=== PATIENT | male | born 1990 | race Caucasian/White ===

== ENCOUNTER 2016-11-16 15:53 | Emergency (ER) | payer OTHER ==
[2016-11-16 16:00] VITALS: BP 132/67; PULSE 76; TEMP 98; BMI 19.5
--- NOTE | 2016-11-16 16:07 | PDOC ---
History of Present Illness - General History Source: Patient Exam Limitations: No Limitations - History of Present Illness Initial Comments: CHIEF COMPLAINT: 26 y/o afebrile male with no significant PMH c/o jaw pain and feeling unwell for a few days. HISTORY OF PRESENT ILLNESS: The patient states he was sneezing and had watery eyes for a few days. He started using a nasal spray and some of his symptoms improved. He last used the spray 2 days ago and states he hasn't taken any medication since then. Today, the right side of his jaw began hurting and he admits to feeling like he couldn't breath on the right side of his throat for about 1 minute but that feeling has resolved. He denies f/c, earache, cough, sore throat, n/v/d, CP, SOB, abd pain, and all other symptoms. Vital signs on arrival are within normal limits. REVIEW OF SYSTEMS: GENERAL/CONSTITUTIONAL: No fever/chills. No weakness. No weight change. HEAD, EYES, EARS, NOSE AND THROAT: No change in vision. No ear pain or discharge. No sore throat. +right sided jaw pain. +diffiiculty breathing on right side of throat. CARDIOVASCULAR: No chest pain or shortness of breath. RESPIRATORY: No cough, wheezing, or hemoptysis. GASTROINTESTINAL: No abd pain, nausea, vomiting, diarrhea. GENITOURINARY: No dysuria, frequency, or change in urination. MUSCULOSKELETAL: No joint or muscle swelling or pain. No neck or back pain. SKIN: No rash or easy bruising. PHYSICAL EXAM: GENERAL: The patient is awake, alert, and fully oriented, in no acute distress. He is very well appearing, ambulatory, in NAD or obvious discomfort. No cough. HEAD: Normal with no signs of trauma. ENT: +TTP of right TMJ without clicking or trismus. Pupils equal, round and reactive to light, extraocular movements intact, sclera anicteric, conjunctiva clear. No tonsilar erythema, edema or exudate. Airway patent. No watery eyes. No rhinorrhea. LUNGS: Clear to auscultation bilaterally. Normal excursion. No respiratory distress or use of accessory muscles. CV: RRR, S1/S2, no MRG. Cap refill < 2 sec. ABDOMEN: Soft, non-distended, non-tender even to deep palpation, no hepatomegaly or splenomegaly, no masses. EXTREMITIES: Normal range of motion, no edema. NEUROLOGICAL: Normal speech, normal gait. CN II-XII grossly intact. PSYCH: Normal mood, normal affect. SKIN: Warm, dry, normal turgor, no rashes or lesions noted. <Gema Gonzalez - Last Filed: 11/16/16 16:20> <Tran Zambrano - Last Filed: 11/17/16 01:18> - General Chief Complaint: Allergic Reaction Stated Complaint: DIFF BREATHING Time Seen by Provider: 11/16/16 16:06 Past History - Past Medical History Psychiatric Problems: Yes (bipolar/adhd) - Immunization History Immunization Up to Date: No - Psycho/Social/Smoking Cessation Hx Anxiety: No Suicidal Ideation: No Smoking Status: No Smoking History: Never smoked Have you smoked in the past 12 months: No Number of Cigarettes Smoked Daily: 0 Information on smoking cessation initiated: No Hx Alcohol Use: No Drug/Substance Use Hx: No Substance Use Type: Alcohol <Gema Gonzalez - Last Filed: 11/16/16 16:20> <Tran Zambrano - Last Filed: 11/17/16 01:18> - Past Medical History Allergies/Adverse Reactions: Allergies Allergy/AdvReac Type Severity Reaction Status Date / Time No Known Allergies Allergy Verified 11/16/16 15:56 Home Medications: Ambulatory Orders No Home Medications 0 dose .ROUTE UTDICT 06/01/13 Diphenhydramine HCl [Benadryl -] 25 mg PO Q6H #28 capsule 11/17/16 *Physical Exam - Vital Signs Last Vital Signs Temp Pulse Resp BP Pulse Ox 98 F 76 18 132/67 100 11/16/16 15:56 11/16/16 15:56 11/16/16 15:56 11/16/16 15:56 11/16/16 15:56 <Gema Gonzalez - Last Filed: 11/16/16 16:20> - Vital Signs Last Vital Signs Temp Pulse Resp BP Pulse Ox 98 F 76 18 132/67 100 11/16/16 15:56 11/16/16 15:56 11/16/16 15:56 11/16/16 15:56 11/16/16 15:56 <Tran Zambrano - Last Filed: 11/17/16 01:18> ED Treatment Course - Medications Given in the ED: ED Medications Discontinued Medications Generic Name Dose Route Start Last Admin Trade Name Carrie PRN Reason Stop Dose Admin Ibuprofen 400 mg 11/16/16 16:16 11/16/16 16:34 Motrin - PO 11/16/16 16:17 400 mg ONCE ONE Administration Loratadine 10 mg 11/16/16 16:16 11/16/16 16:34 Claritin - PO 11/16/16 16:17 10 mg ONCE ONE Administration <Tran Zambrano - Last Filed: 11/17/16 01:18> Medical Decision Making - Medical Decision Making A/P: 26 y/o male with seasonal allergies and TMJ. Plan is as follows: 1. PO claritin 2. PO motrin Suggested he not use the nasal spray anymore. Instructed him to take claritin or zyrtec daily for allergy symptoms and motrin for jaw pain. Instructed him to f/u with Dr. Morse within 1 week, drink plenty of fluids and return to the ER with any worsening or concerning symptoms. The patient verbalizes understanding of all instructions, has no further questions and is awaiting discharge. <Gema Gonzalez - Last Filed: 11/16/16 16:20> - Medical Decision Making 11/17/16 01:14 I spoke to [place] poison control and they tell me that shrt MN is nothing to worry about; we need only to make sure pt's QT interval is not prolonged, which it is not. Pt's labs are normal; dystonia and toricollis disappeared with benadryl and woth cogentin. [facility] recommends oral benadry QID x 3-4 days. I will give patient a 7 day supply. We spoke of the fact that quetiapine is abused on the streets these days and that it can couse dysronic reactions. Pt's CXR is normal, EKG is normal suinus with short MN, and pt's Utox is pending. His exam is improved. He will be discharged home with his mom with a prescription of benadryl <Tran Zambrano - Last Filed: 11/17/16 01:18> *DC/Admit/Observation/Transfer <Gema Gonzalez - Last Filed: 11/16/16 16:20> - Discharge Dispostion Admit: No <Tran Zambrano - Last Filed: 11/17/16 01:18> Diagnosis at time of Disposition: Dystonic drug reaction - Discharge Dispostion Disposition: HOME Condition at time of disposition: Good - Patient Instructions Printed Discharge Instructions: Dystonia Movement Disorders Additional Instructions: Discharge Instructions: -Take over the counter zyrtec or claritin daily for allergy symptoms -Take Motrin with food every 6 hours for pain if needed -Drink plenty of fluids -Follow up with Dr. Morse within 1 week -Return to the ER with any worsening or concerning symptoms
[2016-11-16] MEDS ORDERED: IBUPROFEN 400 MG TABLET (FP) PO ONE ×2 (16:16→16:26)
[2016-11-16] MEDS ORDERED: LORATADINE 10 MG TABLET PO ONE (16:16)
[2016-11-16] MEDS ORDERED: LORATADINE 10 MG TABLET ONE (16:26)
== END 2016-11-16 16:34 | disposition home or self-care (01) ==
LOC: JERFT 15:53
PROC: 3E033GC Introduction of Other Therapeutic Substance into Peripheral Vein, Percutaneous Approach (ICD-10-PCS; principal; 2016-11-16)
DX: G24.9 Dystonia, unspecified (principal)
CPT/HCPCS: 99281-25

== ENCOUNTER 2016-11-16 21:57 | Emergency (ER) | payer OTHER ==
[2016-11-16 22:07] VITALS: BMI 20.5
--- NOTE | 2016-11-16 22:41 | PDOC ---
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 The pt was seen earlier today for TMJ symptoms and was discharged home. Patient reports back to the ED tonight for involuntary muscle movements triggered after the patient took one of his friends pills today. Pt is unsure of what he took. Pt denies having any other symptoms. <Karina Brooks - Last Filed: 11/17/16 01:23> <Tran Zambrano - Last Filed: 11/17/16 05:48> - General Chief Complaint: Seizure Stated Complaint: SEIZURE Time Seen by Provider: 11/16/16 22:04 Past History <Karina Brooks - Last Filed: 11/17/16 01:23> - Past Medical History Psychiatric Problems: Yes (bipolar/adhd) - Immunization History Immunization Up to Date: No - Psycho/Social/Smoking Cessation Hx Anxiety: No Suicidal Ideation: No Smoking Status: No Smoking History: Unknown if ever smoked Have you smoked in the past 12 months: No Number of Cigarettes Smoked Daily: 0 Information on smoking cessation initiated: No Hx Alcohol Use: No Drug/Substance Use Hx: Yes (marijuana) Substance Use Type: Marijuana <Tran Zambrano - Last Filed: 11/17/16 05:48> - Past Medical History Allergies/Adverse Reactions: Allergies Allergy/AdvReac Type Severity Reaction Status Date / Time No Known Allergies Allergy Verified 11/16/16 22:03 Home Medications: Ambulatory Orders No Home Medications 0 dose .ROUTE UTDICT 06/01/13 Diphenhydramine HCl [Benadryl -] 25 mg PO Q6H #28 capsule 11/17/16 Review of Systems - Review of Systems Able to Perform ROS?: Yes Comments:: 11/16/16 22:49 CONSTITUTIONAL: Absent: fever, no chills, no fatigue EYES: Absent: visual changes ENT: Absent: ear pain, no sore throat CARDIOVASCULAR: Absent: chest pain, no palpitations RESPIRATORY: Absent: cough, no SOB GI: Absent: abdominal pain, no nausea, no vomiting, no constipation, no diarrhea GENITOURINARY: Absent: dysuria, no frequency, no hematuria MUSKULOSKELETAL: Present: Involuntary muscle movements Absent: back pain, no arthralgia, no myalgia SKIN: Absent: rash NEURO: Absent: headache <Karina Brooks - Last Filed: 11/17/16 01:23> *Physical Exam - Vital Signs Last Vital Signs Temp Pulse Resp BP Pulse Ox 97.8 F 97 H 19 141/89 100 11/16/16 22:19 11/16/16 22:19 11/16/16 22:19 11/16/16 22:19 11/16/16 22:19 - Physical Exam Comments: 11/16/16 22:51 GENERAL: Well-appearing, well-nourished. No apparent distress. HEENT: Normocephalic, atraumatic. PERRL, EOM intact. CARDIOVASCULAR: Normal S1, S2. Regular rate and rhythm. PULMONARY: Clear to auscultation bilaterally. ABDOMEN: Soft, non-distended, non-tender. EXTREMITIES: Normal ROM in all four extremities. No gross deformities. SKIN: Warm, dry. (+)Tattoos on arms. Abrasion on left elbow. NEUROLOGICAL: No focal neurological deficits. <Karina Brooks - Last Filed: 11/17/16 01:23> - Vital Signs Last Vital Signs Temp Pulse Resp BP Pulse Ox 97.8 F 97 H 19 141/89 100 11/16/16 22:19 11/16/16 22:19 11/16/16 22:19 11/16/16 22:19 11/16/16 22:19 <Tran Zambrano - Last Filed: 11/17/16 05:48> ED Treatment Course - LABORATORY CBC & Chemistry Diagram: 11/16/16 22:35 11/16/16 22:35 - Medications Given in the ED: ED Medications Discontinued Medications Generic Name Dose Route Start Last Admin Trade Name Freq PRN Reason Stop Dose Admin Diphenhydramine HCl 50 mg 11/16/16 22:42 11/16/16 22:43 Benadryl Injection - IVPUSH 11/16/16 22:43 50 mg NOW ONE Administration <Karina Brooks - Last Filed: 11/17/16 01:23> - LABORATORY CBC & Chemistry Diagram: 11/16/16 22:35 11/16/16 22:35 <Tran Zambrano - Last Filed: 11/17/16 05:48> Medical Decision Making - Medical Decision Making 11/17/16 05:40 Pt comes with dyskinesia. He was here earlier in the afternoon with jaw pain and strange sensation and inability to close jaw. Pt now has torticollis, smacking of tongue and flexion of the arm toward the neck. Everything resloved with benadryl and cogentin, and it is clear that pt had a dystonic reaction, but not clear to what. Pt states that he received a pill from a friend that was supposed to be for allergies, but after the pill, his dyskinesia worsened. Pt also uses weed. I spoke to [place] poison control, and they tell me that pt's pr shortening is not of concern. We need to make sure that pt doesn't have QT prolongation (which he doesn't) [facility] tells me that quetiapine is a dyskinesia casing popular street drug. Pt is not sure what he took. He has normal labs and UTOX shows only THC. Pt received IVF. He will be discharged home with mom with a prescription of benadryl to treat residual dyskinesia <Tran Zambrano - Last Filed: 11/17/16 05:48> *DC/Admit/Observation/Transfer - Attestations Scribe Attestion: 11/16/16 22:51 Documentation prepared by Karina Brooks, acting as medical appointment clerk for Tran Zambrano MD. <Karina Brooks - Last Filed: 11/17/16 01:23> <Tran Zambrano - Last Filed: 11/17/16 05:48> Diagnosis at time of Disposition: Dystonic drug reaction - Discharge Dispostion Disposition: HOME Condition at time of disposition: Guarded - Prescriptions Prescriptions: Diphenhydramine HCl [Benadryl -] 25 mg PO Q6H #28 capsule
[2016-11-16 22:48] LABS: BASOPHIL 0.5 % (0-2.0); EOSINOPHIL 1.2 % (0-4.5); MCH 31.4 pg (25.7-33.7); MCHC 32.6 g/dl (32.0-35.9); MEAN CELL VOLUME 96.3 fl (80-96); MEAN PLT VOLUME 8.8 fl (7.5-11.1); NEUTROPHILS 68.4 % (42.8-82.8); PLATELET COUNT 274 K/MM3 (134-434); RDW 12.6 % (11.9-15.9); WHITE BLOOD COUNT 7.6 K/mm3 (4.0-10.0)
[2016-11-16] MEDS ORDERED: FOLIC ACID INJECTION - 1 MG, THIAMINE HCL 100 MG, MULTIVIT INJECTION ADULT 10 ML in SOD... IVPB ONE (22:48)
[2016-11-16] MEDS ORDERED: BENZTROPINE MESYLATE 2 MG/2 ML INJECTION IM ONE (23:00)
[2016-11-16 23:31] LABS: ALBUMIN 4.9 g/dl (3.4-5.0); ALK PHOS 61 U/L (45-117); ANION GAP 12 (8-16); BILIRUBIN,TOTAL 0.8 mg/dL (0.2-1.0); CALCIUM 10.6 mg/dL (8.5-10.1); CO2 27 mmol/L (21-32); COCKROFT - GAULT 108.67; CREATININE 0.9 mg/dL (0.7-1.3); GLUCOSE,RANDOM 90 mg/dL (74-106); SGOT/AST 25 U/L (15-37); SGPT/ALT 30 U/L (12-78); TOT PROT 8.4 g/dl (6.4-8.2)
[2016-11-17 01:17] LABS: URINE MARIJUANA THC POSITIVE ng/ml (CUTOFF=50)
[2016-11-17 01:59] VITALS: BP 128/85; PULSE 68; TEMP 98
--- NOTE | 2016-11-17 11:17 | EKG ---
Test Reason : Blood Pressure : / mmHG Vent. Rate : 059 BPM Atrial Rate : 059 BPM P-R Int : 110 ms QRS Dur : 094 ms QT Int : 374 ms P-R-T Axes : 067 082 056 degrees QTc Int : 370 ms SINUS BRADYCARDIA WITH SHORT MS INCOMPLETE RIGHT BUNDLE BRANCH BLOCK NONSPECIFIC T WAVE ABNORMALITY ABNORMAL ECG WHEN COMPARED WITH ECG OF 01-JAN-2015 23:47, INCOMPLETE RIGHT BUNDLE BRANCH BLOCK IS NOW PRESENT Confirmed by GLORIA PATRICIO, SUSAN ([id number]) on 11/17/2016 11:17:19 AM Referred By: Confirmed By:SUSAN CASTRO MD
[2016-11-17] MEDS ORDERED: BENZTROPINE MESYLATE 2 MG/2 ML INJECTION IM ONE (22:10)
== END 2016-11-17 01:59 | disposition home or self-care (01) ==
LOC: JER 21:57
PROC: 3E023GC Introduction of Other Therapeutic Substance into Muscle, Percutaneous Approach (ICD-10-PCS; principal; 2016-11-16)
PROC: 3E033GC Introduction of Other Therapeutic Substance into Peripheral Vein, Percutaneous Approach (ICD-10-PCS; 2016-11-16)
DX: G24.01 Drug induced subacute dyskinesia (principal); F31.9 Bipolar disorder, unspecified; F90.9 Attention-deficit hyperactivity disorder, unspecified type
CPT/HCPCS: 36415; 71010-TC; 80053; 80307; 83735; 85025; 85651; 93005; 93010; 99284-25

== ENCOUNTER 2017-09-02 22:19 | Emergency (ER) | payer OTHER ==
[2017-09-02 22:42] VITALS: BP 138/75; PULSE 65; TEMP 98.5; BMI 19.8
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
== END 2017-09-03 00:04 | disposition home or self-care (01) ==
LOC: JERFT 22:19
PROC: 2W3CX1Z Immobilization of Right Lower Arm using Splint (ICD-10-PCS; principal; 2017-09-02)
DX: S62.644A Nondisplaced fracture of proximal phalanx of right ring finger, initial encounter for closed fracture (principal); V13.4XXA Pedal cycle driver injured in collision with car, pick-up truck or van in traffic accident, initial encounter; Y92.414 Local residential or business street as the place of occurrence of the external cause; Y93.89 Activity, other specified; Y99.8 Other external cause status
CPT/HCPCS: 73130-TC-RT-FY; 73560-TC-RT-FY; 99282-25

== ENCOUNTER 2019-02-01 02:58 | Emergency (ER) | payer OTHER ==
[2019-02-01 04:58] VITALS: BMI 43.6
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
[2019-02-01] MEDS ORDERED: CYCLOBENZAPRINE HCL 10 MG TABLET (FP) PO ONE (05:31)
[2019-02-01] MEDS ORDERED: ACETAMINOPHEN 500 MG TABLET (FP) PO ONE (05:33)
[2019-02-01] MEDS ORDERED: CYCLOBENZAPRINE HCL 10 MG TABLET (FP) ONE (05:45)
[2019-02-01] MEDS ORDERED: ACETAMINOPHEN 325 MG TABLET (FP) ONE (05:45)
[2019-02-01 07:56] VITALS: BP 111/59; PULSE 78; TEMP 97.8
== END 2019-02-01 07:48 | disposition home or self-care (01) ==
LOC: JER 02:58
PROC: 0HQLXZZ Repair Left Lower Leg Skin, External Approach (ICD-10-PCS; principal; 2019-02-01)
DX: S81.012A Laceration without foreign body, left knee, initial encounter (principal); S30.810A Abrasion of lower back and pelvis, initial encounter; S50.312A Abrasion of left elbow, initial encounter; S50.311A Abrasion of right elbow, initial encounter; S80.212A Abrasion, left knee, initial encounter; S80.211A Abrasion, right knee, initial encounter; V13.4XXA Pedal cycle driver injured in collision with car, pick-up truck or van in traffic accident, initial encounter; Y92.410 Unspecified street and highway as the place of occurrence of the external cause; Y93.55 Activity, bike riding; Y99.8 Other external cause status
CPT/HCPCS: 70450-TC; 73560-TC-LT-FY; 73560-TC-RT-FY; 99282-25

== ENCOUNTER 2022-05-09 16:38 | Emergency (ER) | payer SELFPAY ==
[2022-05-09 16:44] VITALS: BP 108/72; PULSE 68; RESP 18; TEMP 98.5; BMI 20.7
[2022-05-09] MEDS ORDERED: HALOPERIDOL LACTATE 5 MG/ML IM ONE ×2 (18:03→18:24)
[2022-05-09] MEDS ORDERED: SODIUM CHLORIDE 0.9% 500 ML INFUS.BAG IV ONE (18:03)
[2022-05-09] MEDS ORDERED: FAMOTIDINE 20 MG/50 ML IVPB 20 MG/50 ML MG IVPB ONE (18:20)
[2022-05-09 19:34] LABS: BASO % 0.7 % (0-2.0); EOS % 2.8 % (0-4.5); HEMATOCRIT 37.8 % (35.4-49); HEMOGLOBIN 12.7 GM/dL (11.7-16.9); LYMPH % 33.2 % (8-40); MCH 31.6 pg (25.7-33.7); MCHC 33.6 g/dl (32.0-35.9); MEAN CELL VOLUME 94.2 fl (80-96); MEAN PLT VOLUME 8.4 fl (7.5-11.1); MONO % 7.1 % (3.8-10.2); NEUT % 56.2 % (42.8-82.8); PLATELET COUNT 338 10^3/uL (134-434); RBC 4.02 M/mm3 (4.00-5.60); RDW 12.6 % (11.9-15.9); WHITE BLOOD COUNT 5.8 K/mm3 (4.0-10.0)
[2022-05-09 19:52] LABS: CALCIUM 9.6 mg/dL (8.5-10.1)
[2022-05-09 19:53] LABS: BLOOD UREA NITROGEN 8.1 mg/dL (7-18)
[2022-05-09 19:56] LABS: CREATININE 0.8 mg/dL (0.55-1.3)
[2022-05-09 19:58] LABS: BILIRUBIN,TOTAL 0.4 mg/dL (0.2-1); TOT PROT 7.5 g/dl (6.4-8.2)
== END 2022-05-09 22:13 | disposition left against medical advice (07) ==
LOC: JER 16:38
PROC: 3E023GC Introduction of Other Therapeutic Substance into Muscle, Percutaneous Approach (ICD-10-PCS; principal; 2022-05-09)
PROC: 3E033GC Introduction of Other Therapeutic Substance into Peripheral Vein, Percutaneous Approach (ICD-10-PCS; principal; 2022-05-09)
DX: R10.84 Generalized abdominal pain (principal)
CPT/HCPCS: 36415; 80053; 85025; 93005; 93010; 99284-25

== ENCOUNTER 2022-05-10 18:00 | Emergency (ER) | payer SELFPAY ==
[2022-05-10 18:04] VITALS: TEMP 98; BMI 20.7
[2022-05-10] MEDS ORDERED: SODIUM CHLORIDE 1,000 ML IV STA (18:58)
[2022-05-10] MEDS ORDERED: methylPREDNISolone NA SUCC 125 MG/2 ML VIAL IVPUSH ONE (18:58)
[2022-05-10] MEDS ORDERED: FAMOTIDINE 20 MG/50 ML IVPB 20 MG/50 ML MG IVPB ONE ×2 (18:58→19:08)
[2022-05-10] MEDS ORDERED: NALOXONE HCL 0.4 MG/ML VIAL ONE (19:06)
[2022-05-10] MEDS ORDERED: NALOXONE HCL 0.4 MG/ML VIAL IVPUSH ONE (19:07)
[2022-05-10] MEDS ORDERED: methylPREDNISolone NA SUCC 125 MG/2 ML VIAL ONE (19:08)
[2022-05-10 19:15] LABS: BASO % 0.4 % (0-2.0); EOS % 0.2 % (0-4.5); HEMATOCRIT 46.4 % (35.4-49); HEMOGLOBIN 15.3 GM/dL (11.7-16.9); LYMPH % 17.7 % (8-40); MCH 31.1 pg (25.7-33.7); MCHC 33.1 g/dl (32.0-35.9); MEAN PLT VOLUME 8.5 fl (7.5-11.1); MONO % 6.3 % (3.8-10.2); NEUT % 75.4 % (42.8-82.8); PLATELET COUNT 436 10^3/uL (134-434); RBC 4.93 M/mm3 (4.00-5.60); RDW 12.6 % (11.9-15.9); WHITE BLOOD COUNT 9.4 K/mm3 (4.0-10.0)
[2022-05-10 19:21] LABS: INR 1.19 (0.83-1.09); PROTHROMBIN TIME (PATIENT) 13.7 SEC (9.7-13.0)
[2022-05-10 19:34] LABS: CALCIUM 10.3 mg/dL (8.5-10.1)
[2022-05-10 19:35] LABS: ALBUMIN 4.5 g/dl (3.4-5.0); BLOOD UREA NITROGEN 6.4 mg/dL (7-18)
[2022-05-10 19:37] LABS: CREATININE 0.8 mg/dL (0.55-1.3)
[2022-05-10 19:39] LABS: BILIRUBIN,TOTAL 0.6 mg/dL (0.2-1); TOT PROT 8.8 g/dl (6.4-8.2)
[2022-05-10 20:20] LABS: LACTIC ACID 3.2 mmol/L (0.4-2.0)
[2022-05-10] MEDS ORDERED: LACTATED RINGERS SOLUTION 1000 ML INFUS.BAG IV ONE (20:40)
[2022-05-10 20:44] LABS: OPIATES, URI NEGATIVE (NEGATIVE); PHENCYCLIDINE,URINE NEGATIVE (NEGATIVE); URINE BARBITURATES NEGATIVE (NEGATIVE)
[2022-05-10 20:45] LABS: COCAINE, UR NEGATIVE (NEGATIVE); URINE BENZODIAZEPINES NEGATIVE (NEGATIVE)
[2022-05-10 20:55] LABS: METHADONE, UR POSITIVE (NEGATIVE); URINE AMPHETAMINES NEGATIVE (NEGATIVE)
[2022-05-10 20:57] LABS: PH,URINE 6.5 (5.0-8.0); URINE APPEARANCE CLEAR; URINE BILIRUBIN NEGATIVE (NEGATIVE); URINE COLOR YELLOW; URINE GLUCOSE (UA) NEGATIVE (NEGATIVE); URINE KETONE 1+ (NEGATIVE); URINE LEUK ESTERASE NEGATIVE (NEGATIVE); URINE NITRITE NEGATIVE (NEGATIVE); URINE PROTEIN TRACE (NEGATIVE); URINE UROBILINOGEN 0.2 mg/dL (0.2-1.0)
[2022-05-10 21:10] LABS: HIV INTERPRETATION NEGATIVE (NEGATIVE)
[2022-05-10 23:26] LABS: CALCIUM 9.3 mg/dL (8.5-10.1)
[2022-05-10 23:27] LABS: ALBUMIN 3.6 g/dl (3.4-5.0); BLOOD UREA NITROGEN 6.1 mg/dL (7-18)
[2022-05-10 23:30] LABS: CREATININE 0.8 mg/dL (0.55-1.3)
[2022-05-10 23:32] LABS: BILIRUBIN,TOTAL 0.5 mg/dL (0.2-1); TOT PROT 7.3 g/dl (6.4-8.2)
[2022-05-11] VITALS: BP 122/78; PULSE 68; RESP 16
== END 2022-05-10 23:59 | disposition home or self-care (01) ==
LOC: JER 18:00
PROC: 3E033GC Introduction of Other Therapeutic Substance into Peripheral Vein, Percutaneous Approach (ICD-10-PCS; principal; 2022-05-10)
DX: F11.90 Opioid use, unspecified, uncomplicated (principal); F12.90 Cannabis use, unspecified, uncomplicated
CPT/HCPCS: 36415; 70491-TC; 71045-TC-FY; 80053; 80307; 81003; 82550; 82553; 83605; 84484; 85025; 85610; 87040; 87086; 87389; 87651; 93005; 93010; 99285-25; Q9967

== ENCOUNTER 2022-11-24 10:40 | Inpatient (IN) | payer OTHER ==
[2022-11-24 11:34] VITALS: BMI 16.2
[2022-11-24] MEDS ORDERED: ONDANSETRON *ODT* 4 MG TABLET SL PRN (13:00)
[2022-11-24] MEDS ORDERED: hydrOXYzine PAMOATE 25 MG CAPSULE (FP) PO PRN (13:00)
[2022-11-24] MEDS ORDERED: IBUPROFEN 400 MG TABLET (FP) PO PRN (13:00)
[2022-11-24] MEDS ORDERED: POLYETHYLENE GLYCOL (HEALTHYLAX) 3350 17 GM PACKET PO PRN (13:00)
[2022-11-24] MEDS ORDERED: IBUPROFEN 600 MG TABLET (FP) PO PRN (13:00)
[2022-11-24] MEDS ORDERED: ACETAMINOPHEN 325 MG TABLET (FP) PO PRN (13:00)
[2022-11-24] MEDS ORDERED: NALOXONE HCL 0.4 MG/ML VIAL IM PRN (13:00)
[2022-11-24] MEDS ORDERED: BISMUTH SUBSALICYLATE 524 MG/30 ML PO PRN (13:00)
[2022-11-24] MEDS ORDERED: DICYCLOMINE HCL 10 MG CAPSULE PO PRN (13:00)
[2022-11-24] MEDS ORDERED: methaDONE HCL 10 MG TABLET (FOR DETOX USE ONLY) PO ONE (13:00)
[2022-11-24] MEDS ORDERED: NICOTINE 10 MG CARTRIDGE (INHALER) IH PRN (13:00)
[2022-11-24] MEDS ORDERED: BENZONATATE 200 MG CAPSULE PO PRN (13:00)
[2022-11-24] MEDS ORDERED: guaiFENesin 600 MG TABLET.ER (FP) PO PRN (13:00)
[2022-11-24] MEDS ORDERED: MAG HYDROX/AL HYDROX/SIMETH 30 ML UNIT-DOSE CUP PO PRN (13:00)
[2022-11-24] MEDS ORDERED: NALOXONE HCL (KLOXXADO) 8 MG SPRAY NS PRN (13:00)
[2022-11-24] MEDS ORDERED: BENZOCAINE/MENTHOL (CHLORASEPTIC ) LOZENGE MM PRN (13:00)
[2022-11-24] MEDS ORDERED: LOPERAMIDE HCL 2 MG CAPSULE PO PRN (13:00)
[2022-11-24] MEDS ORDERED: MAGNESIUM HYDROX 2400MG/30ML ORAL SUSPENSION 30 ML CUP PO PRN (13:00)
[2022-11-24] MEDS ORDERED: methaDONE HCL 10 MG TABLET (FOR DETOX USE ONLY) ONE (14:21)
[2022-11-24] MEDS: clonazePAM 0.5 MG ODT TABLETS SL PRN (17:43)
[2022-11-24] MEDS: METHOCARBAMOL 500 MG TABLET PO PRN (17:43)
[2022-11-24] MEDS: NICOTINE POLACRILEX 2 MG GUM BUC PRN ×2 (17:56→21:39)
[2022-11-24] MEDS: THIAMINE HCL 100 MG TABLET (FP) PO SCH (22:22)
[2022-11-24] MEDS: cloNIDine HCL 0.1 MG TABLET PO PRN (22:22)
[2022-11-24] MEDS: MELATONIN 5 MG TABLETS PO SCH (22:22)
[2022-11-25] MEDS: clonazePAM 0.5 MG ODT TABLETS SL PRN ×3 (05:45→22:12)
[2022-11-25] MEDS: METHOCARBAMOL 500 MG TABLET PO PRN ×3 (09:12→22:27)
[2022-11-25] MEDS: cloNIDine HCL 0.1 MG TABLET PO PRN ×3 (09:12→22:27)
[2022-11-25] MEDS: hydrOXYzine PAMOATE 25 MG CAPSULE (FP) PO PRN ×3 (09:12→20:48)
[2022-11-25] MEDS: PRENATAL VITAMINS W/ FOLIC ACID TABLET (FP) PO SCH (09:15)
[2022-11-25] MEDS: NICOTINE POLACRILEX 2 MG GUM BUC PRN ×3 (09:24→22:28)
[2022-11-25 10:22] VITALS: RESP 18
[2022-11-25] MEDS: MELATONIN 5 MG TABLETS PO SCH (22:11)
[2022-11-25] MEDS: THIAMINE HCL 100 MG TABLET (FP) PO SCH (22:12)
[2022-11-26] MEDS: hydrOXYzine PAMOATE 25 MG CAPSULE (FP) PO PRN ×3 (02:31→17:25)
[2022-11-26] MEDS: METHOCARBAMOL 500 MG TABLET PO PRN ×2 (04:38→12:32)
[2022-11-26] MEDS: clonazePAM 0.5 MG ODT TABLETS SL PRN (04:39)
[2022-11-26] MEDS: NICOTINE POLACRILEX 2 MG GUM BUC PRN ×2 (04:46→07:55)
[2022-11-26] MEDS: cloNIDine HCL 0.1 MG TABLET PO PRN ×2 (06:48→17:25)
[2022-11-26] MEDS: diazePAM 5 MG TABLET PO PRN ×3 (07:44→17:25)
[2022-11-26] MEDS: PRENATAL VITAMINS W/ FOLIC ACID TABLET (FP) PO SCH (09:56)
[2022-11-26] MEDS ORDERED: methaDONE HCL 10 MG TABLET (FOR DETOX USE ONLY) PO ONE (10:00)
[2022-11-26 11:57] LABS: POTASSIUM 3.5 mmol/L (3.5-5.1)
[2022-11-26 11:59] LABS: HEMATOCRIT 36.6 % (35.4-49); HEMOGLOBIN 12.9 GM/dL (11.7-16.9); MCH 32.4 pg (25.7-33.7); MCHC 35.2 g/dl (32.0-35.9); MEAN CELL VOLUME 91.8 fl (80-96); MEAN PLT VOLUME 9.5 fl (7.5-11.1); PLATELET COUNT 265 10^3/uL (134-434); RBC 3.99 M/mm3 (4.00-5.60); RDW 12.3 % (11.9-15.9); WHITE BLOOD COUNT 6.8 K/mm3 (4.0-10.0)
[2022-11-26 12:09] LABS: CALCIUM 9.7 mg/dL (8.5-10.1)
[2022-11-26 12:10] LABS: BLOOD UREA NITROGEN 17.6 mg/dL (7-18)
[2022-11-26 12:13] LABS: CREATININE 0.8 mg/dL (0.55-1.3)
[2022-11-26 12:14] LABS: TOT PROT 7.4 g/dl (6.4-8.2)
[2022-11-26 12:15] LABS: BILIRUBIN,TOTAL 0.6 mg/dL (0.2-1)
[2022-11-26 14:30] VITALS: PULSE 87
[2022-11-26 17:31] VITALS: BP 112/75; TEMP 98.2
[2022-11-26] MEDS ORDERED: QUEtiapine FUMARATE 100 MG TABLET (FP) PO SCH (22:00)
[2022-11-28] MEDS ORDERED: methaDONE HCL 10 MG TABLET (FOR DETOX USE ONLY) PO ONE (10:00)
== END 2022-11-26 19:05 | disposition left against medical advice (07) | DRG 770 ==
LOC: YASAS 10:40 → Y3N 14:38
PROVIDERS: ADMIT Allergy & Immunology; ATTEND Surgery
PROC: HZ2ZZZZ Detoxification Services for Substance Abuse Treatment (ICD-10-PCS; principal; 2022-11-24)
DX: F11.23 Opioid dependence with withdrawal (principal); F12.20 Cannabis dependence, uncomplicated; F19.24 Other psychoactive substance dependence with psychoactive substance-induced mood disorder; G47.00 Insomnia, unspecified; R63.4 Abnormal weight loss; S61.411A Laceration without foreign body of right hand, initial encounter; W22.8XXA Striking against or struck by other objects, initial encounter; Y92.238 Other place in hospital as the place of occurrence of the external cause; Z68.1 Body mass index [BMI] 19.9 or less, adult; Z87.891 Personal history of nicotine dependence; Z87.828 Personal history of other (healed) physical injury and trauma; Z28.310 Unvaccinated for COVID-19; Z28.21 Immunization not carried out because of patient refusal
CPT/HCPCS: 36415; 80053; 85027; 86780; 87811; C9803-CS; U0003; U0005

== ENCOUNTER 2024-01-15 17:00 | Emergency (ER) | payer OTHER ==
[2024-01-15 17:08] VITALS: BP 153/83; PULSE 50; RESP 18; TEMP 98.7; BMI 19.2
[2024-01-15] MEDS: SODIUM CHLORIDE 1,000 ML IV STA ×2 (17:47→19:38)
[2024-01-15 17:49] LABS: BASO % 0.5 % (0-2.0); HEMATOCRIT 42.4 % (35.4-49); HEMOGLOBIN 14.4 GM/dL (11.7-16.9); LYMPH % 10.9 % (8-40); MCH 31.3 pg (25.7-33.7); MCHC 33.9 g/dl (32.0-35.9); MEAN CELL VOLUME 92.5 fl (80-96); NEUT % 83.6 % (42.8-82.8); PLATELET COUNT 320 10^3/uL (134-434); RBC 4.58 M/mm3 (4.00-5.60); RDW 12.7 % (11.9-15.9); WHITE BLOOD COUNT 10.4 K/mm3 (4.0-10.0)
[2024-01-15] MEDS ORDERED: ONDANSETRON 4 MG/2 ML VIAL ONE (17:52)
[2024-01-15] MEDS ORDERED: FAMOTIDINE 20 MG/50 ML IVPB 20 MG/50 ML MG IVPB ONE (17:53)
[2024-01-15] MEDS: FAMOTIDINE 20 MG/50 ML IVPB 20 MG/50 ML MG IVPB ONE (17:55)
[2024-01-15] MEDS: ONDANSETRON 4 MG/2 ML VIAL IVPUSH ONE (17:55)
[2024-01-15 18:37] LABS: POTASSIUM 3.4 mmol/L (3.5-5.1)
[2024-01-15 18:40] LABS: ALBUMIN 4.3 g/dl (3.4-5.0); CALCIUM 10.2 mg/dL (8.5-10.1); MAGNESIUM 1.9 mg/dL (1.8-2.4)
[2024-01-15 18:41] LABS: BLOOD UREA NITROGEN 20.2 mg/dL (7-18)
[2024-01-15 18:43] LABS: CREATININE 0.8 mg/dL (0.55-1.3)
[2024-01-15 18:45] LABS: BILIRUBIN,TOTAL 0.7 mg/dL (0.2-1); TOT PROT 7.9 g/dl (6.4-8.2)
[2024-01-15] MEDS ORDERED: POTASSIUM CHLORIDE ORAL LIQUID 20 MEQ/15 ML ONE (18:53)
[2024-01-15] MEDS: POTASSIUM CHLORIDE ORAL LIQUID 20 MEQ/15 ML PO ONE (18:55)
[2024-01-15] MEDS ORDERED: METOCLOPRAMIDE HCL INJECTION 10 MG/2 ML VIAL ONE (19:18)
[2024-01-15] MEDS ORDERED: ACETAMINOPHEN INJECTION 100 ML IVPB ONE (19:22)
[2024-01-15] MEDS: METOCLOPRAMIDE HCL INJECTION 10 MG/2 ML VIAL IVPUSH ONE (19:38)
[2024-01-15] MEDS: ACETAMINOPHEN 1000 MG/100 ML BAG IVPB ONE (19:38)
[2024-01-15] MEDS ORDERED: HALOPERIDOL LACTATE 5 MG/ML ONE (20:22)
[2024-01-15] MEDS: HALOPERIDOL LACTATE 5 MG/ML IM ONE (20:51)
== END 2024-01-15 21:46 | disposition home or self-care (01) ==
LOC: JER 17:00
PROC: 3E033GC Introduction of Other Therapeutic Substance into Peripheral Vein, Percutaneous Approach (ICD-10-PCS; principal; 2024-01-15)
PROC: 3E033NZ Introduction of Analgesics, Hypnotics, Sedatives into Peripheral Vein, Percutaneous Approach (ICD-10-PCS; 2024-01-15)
PROC: 3E033GC Introduction of Other Therapeutic Substance into Peripheral Vein, Percutaneous Approach (ICD-10-PCS; 2024-01-15)
PROC: 3E033GC Introduction of Other Therapeutic Substance into Peripheral Vein, Percutaneous Approach (ICD-10-PCS; 2024-01-15)
PROC: 3E023GC Introduction of Other Therapeutic Substance into Muscle, Percutaneous Approach (ICD-10-PCS; 2024-01-15)
PROC: 3E0337Z Introduction of Electrolytic and Water Balance Substance into Peripheral Vein, Percutaneous Approach (ICD-10-PCS; 2024-01-15)
DX: R11.2 Nausea with vomiting, unspecified (principal); R10.9 Unspecified abdominal pain
CPT/HCPCS: 36415; 80053; 83690; 83735; 85025; 93005; 93010; 99284-25; J0131

== ENCOUNTER 2024-01-16 07:24 | Emergency (ER) | payer OTHER ==
[2024-01-16 07:33] VITALS: BP 126/85; PULSE 37; RESP 14; TEMP 98.6; BMI 19.5
[2024-01-16] MEDS ORDERED: METOCLOPRAMIDE HCL INJECTION 10 MG/2 ML VIAL IVPB ONE (08:09)
[2024-01-16 08:25] LABS: BASO % 0.2 % (0-2.0); HEMATOCRIT 41.9 % (35.4-49); HEMOGLOBIN 14.7 GM/dL (11.7-16.9); MCH 31.4 pg (25.7-33.7); MEAN CELL VOLUME 89.7 fl (80-96); MEAN PLT VOLUME 8.2 fl (7.5-11.1); MONO % 5.3 % (3.8-10.2); NEUT % 85.5 % (42.8-82.8); PLATELET COUNT 336 10^3/uL (134-434); RBC 4.67 M/mm3 (4.00-5.60); RDW 12.5 % (11.9-15.9); WHITE BLOOD COUNT 13.8 K/mm3 (4.0-10.0)
[2024-01-16] MEDS: SODIUM CHLORIDE 0.9% 500 ML INFUS.BAG IV ONE (08:25)
[2024-01-16] MEDS: ACETAMINOPHEN 1000 MG/100 ML BAG IVPB ONE (08:25)
[2024-01-16] MEDS ORDERED: ACETAMINOPHEN INJECTION 100 ML IVPB ONE (08:26)
[2024-01-16 08:44] LABS: POTASSIUM 3.4 mmol/L (3.5-5.1)
[2024-01-16 08:46] LABS: CALCIUM 9.9 mg/dL (8.5-10.1)
[2024-01-16 08:47] LABS: ALBUMIN 4.3 g/dl (3.4-5.0); MAGNESIUM 1.9 mg/dL (1.8-2.4)
[2024-01-16 08:50] LABS: CREATININE 0.8 mg/dL (0.55-1.3)
[2024-01-16 08:52] LABS: TOT PROT 7.6 g/dl (6.4-8.2)
[2024-01-16 09:48] LABS: VENOUS BASE EXCESS 3.3 mmol/L (-2-2); VENOUS O2 SATURATION 91.7 % (70-80); VENOUS PCO2 39.1 mmHg (38-52); VENOUS PH 7.46 (7.310-7.410)
[2024-01-16 10:11] LABS: COCAINE, UR NEGATIVE (NEGATIVE); OPIATES, URI NEGATIVE (NEGATIVE); URINE AMPHETAMINES NEGATIVE (NEGATIVE); URINE BARBITURATES NEGATIVE (NEGATIVE); URINE BENZODIAZEPINES NEGATIVE (NEGATIVE)
[2024-01-16 10:12] LABS: PHENCYCLIDINE,URINE NEGATIVE (NEGATIVE)
[2024-01-16 10:21] LABS: METHADONE, UR NEGATIVE (NEGATIVE)
== END 2024-01-16 12:18 | disposition home or self-care (01) ==
LOC: JER 07:24
PROC: 3E033NZ Introduction of Analgesics, Hypnotics, Sedatives into Peripheral Vein, Percutaneous Approach (ICD-10-PCS; principal; 2024-01-16)
PROC: 3E033GC Introduction of Other Therapeutic Substance into Peripheral Vein, Percutaneous Approach (ICD-10-PCS; 2024-01-16)
DX: G24.02 Drug induced acute dystonia (principal); R00.8 Other abnormalities of heart beat; R11.2 Nausea with vomiting, unspecified; T45.0X5A Adverse effect of antiallergic and antiemetic drugs, initial encounter; T43.505A Adverse effect of unspecified antipsychotics and neuroleptics, initial encounter
CPT/HCPCS: 36415; 80053; 80307; 82550; 82553; 82803; 83735; 84439; 84443; 84484; 85025; 93005; 93010; 99284-25; J0131

== ENCOUNTER 2024-06-03 14:21 | Emergency (ER) | payer OTHER ==
[2024-06-03 14:26] VITALS: BP 135/87; PULSE 68; RESP 18; TEMP 98.2; BMI 19.2
[2024-06-03] MEDS ORDERED: NALOXONE (NYS OPIOID OVERDOSE PROGRAM) 4 MG/0.1 ML SPRAY NS ONE (15:18)
[2024-06-03] MEDS ORDERED: BUPRENORPHINE/NALOXONE 4 MG/1 MG FILM PACKET SL ONE (15:18)
[2024-06-03] MEDS ORDERED: ONDANSETRON *ODT* 4 MG TABLET ONE (15:34)
[2024-06-03] MEDS: ONDANSETRON *ODT* 4 MG TABLET SL ONE (15:35)
== END 2024-06-03 16:15 | disposition home or self-care (01) ==
LOC: JER 14:21
DX: R11.2 Nausea with vomiting, unspecified (principal); R10.9 Unspecified abdominal pain; F11.23 Opioid dependence with withdrawal; F12.20 Cannabis dependence, uncomplicated
CPT/HCPCS: 99283-25; Q0162

== ENCOUNTER 2024-12-02 10:56 | Emergency (ER) | payer OTHER ==
[2024-12-02 11:02] VITALS: BP 114/79; PULSE 63; RESP 18; TEMP 98; BMI 19.2
[2024-12-02] MEDS ORDERED: LIDOCAINE 5% TOPICAL PATCH ONE (11:47)
[2024-12-02] MEDS ORDERED: ACETAMINOPHEN 325 MG TABLET (FP) ONE (11:47)
[2024-12-02] MEDS: LIDOCAINE 5% TOPICAL PATCH TP ONE (11:51)
[2024-12-02] MEDS: ACETAMINOPHEN 325 MG TABLET (FP) PO ONE (11:51)
[2024-12-02] MEDS ORDERED: LIDOCAINE PATCH REMOVAL MC ONE (22:00)
== END 2024-12-02 13:37 | disposition home or self-care (01) ==
LOC: JER 10:56
DX: M54.9 Dorsalgia, unspecified (principal); R11.0 Nausea; R53.83 Other fatigue; F11.20 Opioid dependence, uncomplicated; Z72.820 Sleep deprivation; Z59.01 Sheltered homelessness
CPT/HCPCS: 99283-25